=== PATIENT | male | born 2000 | race Caucasian/White ===

== ENCOUNTER 2024-11-17 19:22 | Emergency (ER) | payer OTHER ==
[~2024-11-17] VITALS: Ht 185.4 cm; Wt 112.0 kg
[2024-11-17 19:27] VITALS: TEMP 98.6
[2024-11-17 20:18] VITALS: BP 150/99; PULSE 70; RESP 26; O2SAT 99
[2024-11-17 20:53] LABS: PLATELET COUNT (AUTO) 258 K/uL (150-450); RED BLOOD CELL COUNT(AUTO) 5.08 MIL/uL (4.50-5.90); RED CELL DISTRIBUTION WIDTH 14.1 % (11.5-14.5); WHITE BLOOD COUNT (AUTO) 7.1 K/uL (4.5-11.0)
[2024-11-17] MEDS: ONDANSETRON HCL 4 MG/2 ML VIAL IVP ONE (20:55)
[2024-11-17] MEDS: KETOROLAC TROMETHAMINE 30 MG/ML VIAL IVP ONE (20:56)
[2024-11-17] MEDS: MORPHINE SULFATE 4 MG/ML SYRINGE IVP ONE (20:57)
[2024-11-17 21:00] LABS: CALCIUM, TOTAL 8.6 mg/dL (8.8-10.5); CREATININE 1.35 mg/dL (0.60-1.30); GLOMERULAR FILTR. RATE CALC > 60 mL/min (>60); GLUCOSE,RANDOM 104 mg/dL (70-110); SODIUM SERUM 140 mmol/L (136-145); UREA NITROGEN, BLOOD 15 mg/dL (7-18)
[2024-11-17 21:06] LABS: ASPARTATE AMINOTRANSFERASE 27 U/L (15-37); TOTAL PROTEIN, SERUM 7.0 g/dL (6.4-8.2)
[2024-11-17 21:10] LABS: LACTIC ACID 1.1 mmol/L (0.4-2.0)
[2024-11-17] MEDS: SODIUM CHLORIDE 0.9% 1,000 ML IV ONE (22:08)
[2024-11-17 23:08] LABS: APPEARANCE,URINE CLEAR (CLEAR); GLUCOSE, URINE (UA) NEGATIVE (NEGATIVE); LEUKOCYTE ESTERASE ,URINE NEGATIVE (NEGATIVE); NITRATE,URINE NEGATIVE (NEGATIVE); OCCULT BLOOD,URINE SMALL (NEGATIVE); SPECIFIC GRAVITIY, URINE 1.017 (1.003-1.030)
[2024-11-17 23:30] LABS: SQUAMOUS EPITHELIAL CELL,UR Few /LPF (None Seen)
[2024-11-18] MEDS ORDERED: TAMS0.4C94 PO (00:19)
[2024-11-18] MEDS: TAMSULOSIN HCL 0.4 MG CAPSULE PO ONE (00:36)
== END 2024-11-18 00:48 | disposition home or self-care (01) ==
LOC: EMS 19:22
DX: N13.2 Hydronephrosis with renal and ureteral calculous obstruction (principal)
CPT/HCPCS: 99285; 74176; 96374; 96375; 96361; 80048; 80076; 81001; 83605; 83690; 85025; 36415; J1885; J2270; J2405; J7030